=== PATIENT | male | born 1970 | race African-American/Black ===

== ENCOUNTER 2020-11-22 17:35 | Emergency (ER) | payer MEDICAID ==
[~2020-11-22] VITALS: Ht 170.2 cm; Wt 82.0 kg
[2020-11-22 17:37] VITALS: BP 160/90
== END 2020-11-22 19:05 | disposition home or self-care (01) ==
LOC: ER 17:55
DX: M79.89 Other specified soft tissue disorders (principal); R07.9 Chest pain, unspecified
CPT/HCPCS: 71045; 93005; 99283

== ENCOUNTER 2020-11-24 06:22 | Emergency (ER) | payer MEDICAID ==
[~2020-11-24] VITALS: Ht 175.3 cm; Wt 79.0 kg
[2020-11-24] MEDS ORDERED: ACETAMINOPHEN 325MG TABLET PO STA (06:35)
[2020-11-24] MEDS ORDERED: ENOXAPARIN 80MG/0.8ML SYR SUBCUT ONE (07:30)
[2020-11-24] MEDS ORDERED: XAR15 MT (08:02)
[2020-11-24] MEDS ORDERED: IBUP-2029 MT (08:03)
[2020-11-24] MEDS ORDERED: IBUPROFEN 600MG TABLET PO ONE (08:30)
[2020-11-24 08:40] VITALS: BP 124/78
== END 2020-11-24 08:53 | disposition home or self-care (01) ==
LOC: ER 06:22
DX: I82.4Z1 Acute embolism and thrombosis of unspecified deep veins of right distal lower extremity (principal)
CPT/HCPCS: 93971; 96372; 99284; J1650